=== PATIENT | female | born 1985 | race Caucasian/White ===

== ENCOUNTER 2024-07-16 13:13 | Emergency (ER) | payer SELFPAY ==
[~2024-07-16] VITALS: Ht 170.2 cm; Wt 70.0 kg
[2024-07-16 13:19] VITALS: TEMP 36.7; O2SAT 99
[2024-07-16] MEDS ORDERED: NALO4SPR BOTHNSTRLS (14:44)
[2024-07-16 15:01] VITALS: BP 182/103; PULSE 101; RESP 22
[2024-07-16] MEDS: KETOROLAC 30MG/ML VIAL IM ONE (15:01)
== END 2024-07-16 16:11 | disposition home or self-care (01) ==
LOC: ER 13:13
DX: T40.411A Poisoning by fentanyl or fentanyl analogs, accidental (unintentional), initial encounter (principal); Y92.89 Other specified places as the place of occurrence of the external cause
CPT/HCPCS: 99283; 96372; J1885

== ENCOUNTER 2024-08-13 13:19 | Emergency (ER) | payer MEDICAID ==
[~2024-08-13] VITALS: Ht 160 cm; Wt 68.0 kg
[~2024-08-13 13:19] MED LIST: NALO4SPR BOTHNSTRLS
[2024-08-13 13:21] VITALS: O2SAT 99
[2024-08-13 13:39] VITALS: BP 134/74; PULSE 88; RESP 14; TEMP 36.7; O2SAT 100
[2024-08-13] MEDS ORDERED: AMOX1TAB16 PO (14:29)
[2024-08-13] MEDS: BACITRACIN ZINC OINT UDPKT TOP ONE (14:30)
== END 2024-08-13 14:50 | disposition home or self-care (01) ==
LOC: ER 13:19
DX: S81.852A Open bite, left lower leg, initial encounter (principal); Z90.49 Acquired absence of other specified parts of digestive tract; W54.0XXA Bitten by dog, initial encounter; Y93.89 Activity, other specified; Y92.89 Other specified places as the place of occurrence of the external cause; Y99.8 Other external cause status
CPT/HCPCS: 81025; 99283